=== PATIENT | female | born 1990 | race Caucasian/White ===

== ENCOUNTER 2018-09-27 00:39 | Emergency (ER) | payer OTHER ==
[2018-09-27 01:54] VITALS: TEMP 98.1; BMI 39.2
[2018-09-27] MEDS ORDERED: SODIUM CHLORIDE 1,000 ML IV STA (02:21)
[2018-09-27] MEDS ORDERED: ONDANSETRON 4 MG/2 ML VIAL IVPUSH ONE (02:21)
[2018-09-27] MEDS ORDERED: ONDANSETRON 4 MG/2 ML VIAL ONE (02:26)
[2018-09-27 02:47] LABS: URINE APPEARANCE CLEAR; URINE BILIRUBIN NEGATIVE (<2.0 mg/dL); URINE COLOR YELLOW; URINE GLUCOSE (UA) NEGATIVE (NEGATIVE); URINE KETONE NEGATIVE (NEGATIVE); URINE LEUK ESTERASE TRACE (NEGATIVE); URINE NITRITE NEGATIVE (NEGATIVE); URINE PROTEIN NEGATIVE (NEGATIVE); URINE UROBILINOGEN NEGATIVE mg/dL (0.2-1.0)
[2018-09-27 03:03] LABS: BASO % 0.4 % (0-2.0); HEMATOCRIT 39.3 % (32.4-45.2); HEMOGLOBIN 13.3 GM/dL (10.7-15.3); LYMPH % 31.3 % (8-40); MCHC 33.8 g/dl (32.0-36.0); MEAN CELL VOLUME 82.8 fl (80-96); MONO % 6.8 % (3.8-10.2); NEUT % 57.5 % (42.8-82.8); PLATELET COUNT 360 K/MM3 (134-434); RBC 4.75 M/mm3 (3.60-5.2); RDW 12.9 % (11.6-15.6); WHITE BLOOD COUNT 5.2 K/mm3 (4.0-10.0)
[2018-09-27] MEDS ORDERED: morphine CARPU-JECT 4 MG/1 ML DISP.SYRIN IVPUSH ONE (03:11)
[2018-09-27 03:13] LABS: ALBUMIN 3.9 g/dl (3.4-5.0); ALK PHOS 91 U/L (45-117); ANION GAP 10 MMOL/L (8-16); BILIRUBIN,TOTAL 0.5 mg/dL (0.2-1); BLOOD UREA NITROGEN 10 mg/dL (7-18); CALCIUM 8.5 mg/dL (8.5-10.1); CHLORIDE 109 mmol/L (98-107); CO2 24 mmol/L (21-32); CREATININE 0.7 mg/dL (0.55-1.3); GLUCOSE,RANDOM 98 mg/dL (74-106); LIPASE 112 U/L (73-393); POTASSIUM 4.1 mmol/L (3.5-5.1); SGOT/AST 19 U/L (15-37); SGPT/ALT 32 U/L (13-61); SODIUM 143 mmol/L (136-145); TOT PROT 7.2 g/dl (6.4-8.2)
[2018-09-27] MEDS ORDERED: morphine SULFATE 4 MG/ML VIAL ONE (03:33)
[2018-09-27 03:34] LABS: EPI CELLS FEW /HPF (FEW); URINE BACTERIA FEW /hpf (NONE SEEN); URINE MUCUS RARE
--- NOTE | 2018-09-27 04:37 | PDOC ---
History of Present Illness - General Chief Complaint: Pain Stated Complaint: LOWER ABD PAIN/NAUSEA Time Seen by Provider: 09/27/18 02:11 History Source: Patient Exam Limitations: No Limitations - History of Present Illness Travel History: No Initial Comments: 28 y/o F hx of asthma, hypertriglyceridemia, GERD presents with lower abdominal cramping along with NBNB emesis and watery diarrhea that started today around 6 PM. 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 Denies possible bad food exposure, recent travel. Denies fever, chills , sob, cp, black/bloody stools, dysuria, hematuria, flank pain, vaginal bleeding , vaginal discharge. Denies abdominal surgeries 09/27/18 04:35 Past History - Past Medical History Allergies/Adverse Reactions: Allergies Allergy/AdvReac Type Severity Reaction Status Date / Time Penicillins Allergy Hives Verified 09/27/18 01:58 Home Medications: Ambulatory Orders Albuterol Sulfate Inhaler - [Ventolin HFA Inhaler -] 2 inh PO Q4H PRN #1 inhaler 09/05/15 Budesonide/Formeterol Fumarate [SYMBICORT 80/4.5mcg -] 1 inh PO BID 09/27/18 Gemfibrozil [Lopid -] 600 mg PO BID 09/27/18 Ondansetron [Zofran Odt -] 4 mg SL BID PRN #14 od.tablet 09/27/18 Asthma: Yes COPD: No Other medical history: GERD - Reproductive History (#): 3 Para: 1 Therapeutic (s) & number: Yes (1) Spontaneous : 0 - Immunization History Immunization Up to Date: Yes - Suicide/Smoking/Psychosocial Hx Smoking Status: No Smoking History: Never smoked Have you smoked in the past 12 months: No Number of Cigarettes Smoked Daily: 0 Hx Alcohol Use: No Drug/Substance Use Hx: No Substance Use Type: None, Marijuana Abd/GI Specific PMHX - Complaint Specific PMHX Colitis: No Diverticulitis: No Gall Bladder Disease: No GERD: Yes Hepatitis: No Irritable Bowel Synd (IBS): No Pancreatitis: No GI Ulcer Disease: No Review of Systems - Review of Systems Comments:: See HPI 09/27/18 04:41 *Physical Exam - Vital Signs Last Vital Signs Temp Pulse Resp BP Pulse Ox 98.1 F 75 19 128/79 99 09/27/18 01:21 09/27/18 01:21 09/27/18 01:21 09/27/18 01:21 09/27/18 01:21 - Physical Exam General Appearance: Yes: Mild Distress Respiratory/Chest: positive: Lungs Clear, Normal Breath Sounds. negative: Respiratory Distress, Labored Respiration Cardiovascular: positive: Regular Rhythm, Regular Rate, S1, S2 Female Pelvic Exam: positive: normal external exam, cervical os closed, normal adnexa. negative: CMT, discharge, adnexal tenderness, vaginal bleeding Gastrointestinal/Abdominal: positive: Normal Bowel Sounds, Tender (Mild suprapubic TTP), Soft. negative: Distended, Guarding, Rebound, Hernia, Mass Musculoskeletal: negative: CVA Tenderness Neurologic: positive: Fully Oriented, Alert ED Treatment Course - LABORATORY CBC & Chemistry Diagram: 09/27/18 02:40 09/27/18 02:40 - ADDITIONAL ORDERS Additional order review: Laboratory Results 09/27/18 09/27/18 09/27/18 02:40 02:40 02:40 Sodium 143 Potassium 4.1 Chloride 109 H Carbon Dioxide 24 Anion Gap 10 BUN 10 Creatinine 0.7 Creat Clearance w eGFR > 60 Random Glucose 98 Calcium 8.5 Total Bilirubin 0.5 AST 19 ALT 32 Alkaline Phosphatase 91 Total Protein 7.2 Albumin 3.9 Lipase 112 Serum , Qual Negative Urine Color Yellow Urine Appearance Clear Urine pH 5.0 Ur Specific [place] 1.020 Urine Protein Negative Urine Glucose (UA) Negative Urine Ketones Negative Urine Blood Negative Urine Nitrite Negative Urine Bilirubin Negative Urine Urobilinogen Negative Ur Leukocyte Esterase Trace Urine WBC (Auto) 2 Urine RBC (Auto) <1 Ur Epithelial Cells Few Urine Bacteria Few Urine Mucus Rare 09/27/18 02:40 RBC 4.75 MCV 82.8 MCHC 33.8 RDW 12.9 MPV 8.0 Neutrophils % 57.5 Lymphocytes % 31.3 Monocytes % 6.8 Eosinophils % 4.0 D Basophils % 0.4 - Medications Given in the ED: ED Medications Discontinued Medications Generic Name Dose Route Start Last Admin Trade Name Freq PRN Reason Stop Dose Admin Sodium Chloride 1,000 mls @ 1,000 mls/hr 09/27/18 02:21 09/27/18 02:39 Normal Saline - IV 09/27/18 03:20 1,000 mls/hr ASDIR STA Administration Morphine Sulfate 4 mg 09/27/18 03:11 09/27/18 03:35 Morphine Injection - IVPUSH 09/27/18 03:12 4 mg ONCE ONE Administration Ondansetron HCl 4 mg 09/27/18 02:21 09/27/18 02:39 Zofran Injection IVPUSH 09/27/18 02:22 4 mg ONCE ONE Administration Medical Decision Making - Medical Decision Making 28 y/o F not presented with suprapubic pain, NBNB emesis and watery diarrhea x 1 day. Labs reassuring with normal CBC, unremarkable CMP, negative lipase and negative UA. Patient was given 1 L NS fluids, Zofran and Morphine. Patient was reassessed after some time and feeling a lot better. Patient passed PO challenge. Likely this was viral gastroenteritis. Rx for Zofran sent. Return precautions discussed with patient. 09/27/18 04:43 *DC/Admit/Observation/Transfer Diagnosis at time of Disposition: Gastroenteritis - Discharge Dispostion Disposition: HOME Condition at time of disposition: Improved Decision to Admit order: No - Prescriptions Prescriptions: Ondansetron [Zofran Odt -] 4 mg SL BID PRN #14 od.tablet PRN Reason: Nausea And/Or Vomiting - Referrals Referrals: Lucho Patel MD [Primary Care Provider] - 1 week - Patient Instructions Printed Discharge Instructions: DI for Viral Gastroenteritis -- Adult Additional Instructions: Thank you for choosing [facility]. It was a pleasure taking care of you. Likely your symptoms are from viral infection Recommend eating bland diet with foods like banana, rice, applesauce, toast, plain yogurt Be sure to drink plenty of water to stay hydrated and get enough electrolytes You may also try taking over the counter probiotics Return to the Emergency Department if your symptoms worsen or persist, you have fever, shortness of breath, chest pain, severe abdominal pain, vomiting, passing bloody stools, are unable to keep down water or solid food or have other concerning symptoms. - Post Discharge Activity Forms/Work/School Notes: Back to Work
[2018-09-27 05:07] VITALS: BP 128/82; PULSE 82
--- NOTE | 2018-09-27 05:24 | PDOC ---
*Physical Exam - Vital Signs Last Vital Signs Temp Pulse Resp BP Pulse Ox 98.1 F 82 18 128/82 99 09/27/18 01:21 09/27/18 05:06 09/27/18 05:06 09/27/18 05:06 09/27/18 05:06 ED Treatment Course - LABORATORY CBC & Chemistry Diagram: 09/27/18 02:40 09/27/18 02:40 - ADDITIONAL ORDERS Additional order review: Laboratory Results 09/27/18 09/27/18 09/27/18 02:40 02:40 02:40 Sodium 143 Potassium 4.1 Chloride 109 H Carbon Dioxide 24 Anion Gap 10 BUN 10 Creatinine 0.7 Creat Clearance w eGFR > 60 Random Glucose 98 Calcium 8.5 Total Bilirubin 0.5 AST 19 ALT 32 Alkaline Phosphatase 91 Total Protein 7.2 Albumin 3.9 Lipase 112 Serum , Qual Negative Urine Color Yellow Urine Appearance Clear Urine pH 5.0 Ur Specific [place] 1.020 Urine Protein Negative Urine Glucose (UA) Negative Urine Ketones Negative Urine Blood Negative Urine Nitrite Negative Urine Bilirubin Negative Urine Urobilinogen Negative Ur Leukocyte Esterase Trace Urine WBC (Auto) 2 Urine RBC (Auto) <1 Ur Epithelial Cells Few Urine Bacteria Few Urine Mucus Rare 09/27/18 02:40 RBC 4.75 MCV 82.8 MCHC 33.8 RDW 12.9 MPV 8.0 Neutrophils % 57.5 Lymphocytes % 31.3 Monocytes % 6.8 Eosinophils % 4.0 D Basophils % 0.4 - Medications Given in the ED: ED Medications Discontinued Medications Generic Name Dose Route Start Last Admin Trade Name Freq PRN Reason Stop Dose Admin Sodium Chloride 1,000 mls @ 1,000 mls/hr 09/27/18 02:21 09/27/18 02:39 Normal Saline - IV 09/27/18 03:20 1,000 mls/hr ASDIR STA Administration Morphine Sulfate 4 mg 09/27/18 03:11 09/27/18 03:35 Morphine Injection - IVPUSH 09/27/18 03:12 4 mg ONCE ONE Administration Ondansetron HCl 4 mg 09/27/18 02:21 09/27/18 02:39 Zofran Injection IVPUSH 09/27/18 02:22 4 mg ONCE ONE Administration Medical Decision Making - Medical Decision Making 09/27/18 05:23 28F complaining of lower, crampy abd px a/w watery diarrhea, endorses +sick contact exam as documented in associated PA note analgesia f/u labs re-eval Symptoms resolved 2/2 treatment exam unremarkable dc out pt follow up *DC/Admit/Observation/Transfer Diagnosis at time of Disposition: Gastroenteritis - Discharge Dispostion Disposition: HOME Condition at time of disposition: Improved - Prescriptions Prescriptions: Ondansetron [Zofran Odt -] 4 mg SL BID PRN #14 od.tablet PRN Reason: Nausea And/Or Vomiting - Referrals Referrals: Lucho Patel MD [Primary Care Provider] - 1 week - Patient Instructions Printed Discharge Instructions: DI for Viral Gastroenteritis -- Adult Additional Instructions: Thank you for choosing [facility]. It was a pleasure taking care of you. Likely your symptoms are from viral infection Recommend eating bland diet with foods like banana, rice, applesauce, toast, plain yogurt Be sure to drink plenty of water to stay hydrated and get enough electrolytes You may also try taking over the counter probiotics Return to the Emergency Department if your symptoms worsen or persist, you have fever, shortness of breath, chest pain, severe abdominal pain, vomiting, passing bloody stools, are unable to keep down water or solid food or have other concerning symptoms. - Post Discharge Activity Forms/Work/School Notes: Back to Work
== END 2018-09-27 05:07 | disposition home or self-care (01) ==
LOC: JER 00:39
PROC: 3E033NZ Introduction of Analgesics, Hypnotics, Sedatives into Peripheral Vein, Percutaneous Approach (ICD-10-PCS; principal; 2018-09-27)
PROC: 3E033GC Introduction of Other Therapeutic Substance into Peripheral Vein, Percutaneous Approach (ICD-10-PCS; 2018-09-27)
PROC: 3E0337Z Introduction of Electrolytic and Water Balance Substance into Peripheral Vein, Percutaneous Approach (ICD-10-PCS; 2018-09-27)
DX: K52.9 Noninfective gastroenteritis and colitis, unspecified (principal)
CPT/HCPCS: 36415; 80053; 81003; 81015; 83690; 84703; 85025; 99282-25; J7030

== ENCOUNTER 2019-01-06 10:07 | Emergency (ER) | payer OTHER ==
[2019-01-06 10:19] VITALS: BP 126/89; PULSE 85; TEMP 98.2; BMI 39.6
--- NOTE | 2019-01-06 10:52 | PDOC ---
History of Present Illness - General Chief Complaint: Injury Stated Complaint: LOWER BACK PAIN / KNEE PAIN Time Seen by Provider: 01/06/19 10:31 History Source: Patient Exam Limitations: No Limitations (R knee and back pain s/p fall yesterday) - History of Present Illness Pain Location: reports: back, lower extremity (R knee pain) Loss of Consciousness: no loss of consciousness Past History - Travel Traveled outside of the country in the last 30 days: No Close contact w/someone who was outside of country & ill: No - Past Medical History Allergies/Adverse Reactions: Allergies Allergy/AdvReac Type Severity Reaction Status Date / Time Penicillins Allergy Hives Verified 01/06/19 10:40 Home Medications: Ambulatory Orders Albuterol Sulfate Inhaler - [Ventolin HFA Inhaler -] 2 inh PO Q4H PRN #1 inhaler 09/05/15 Budesonide/Formeterol Fumarate [SYMBICORT 80/4.5mcg -] 1 inh PO BID 09/27/18 Aripiprazole [Abilify -] 10 mg PO DAILY 01/06/19 Citalopram Hydrobromide [Celexa -] 20 mg PO DAILY 01/06/19 Cyclobenzaprine HCl 10 mg PO BID 7 Days #20 tablet 01/06/19 Ibuprofen [Motrin -] 600 mg PO TID 01/06/19 Multivitamin [Multiple Vitamins] 1 each PO DAILY 01/06/19 Naproxen [EC-Naprosyn] 500 mg PO BID 15 Days #30 tablet. 01/06/19 Vitamin B Complex 1 each PO DAILY 01/06/19 Asthma: Yes COPD: No Psychiatric Problems: Yes - Reproductive History (#): 3 Para: 1 Therapeutic (s) & number: Yes (1) Spontaneous : 0 - Immunization History Immunization Up to Date: Yes - Suicide/Smoking/Psychosocial Hx Smoking Status: No Smoking History: Unknown if ever smoked Have you smoked in the past 12 months: No Number of Cigarettes Smoked Daily: 0 Hx Alcohol Use: No Drug/Substance Use Hx: No Substance Use Type: None, Marijuana Review of Systems - Review of Systems Is the patient limited Prydeinig proficient: No Constitutional: No: Chills, Fever Musculoskeletal: Yes: Back Pain, Other (R knee pain). No: Joint Swelling, Muscle Pain, Muscle Weakness, Joint Stiffness Neurological: Yes: Unsteady Gait. No: Headache, Numbness, Paresthesia, Tingling , Tremors, Ataxia *Physical Exam - Vital Signs Last Vital Signs Temp Pulse Resp BP Pulse Ox 98.2 F 85 18 126/89 99 01/06/19 10:18 01/06/19 10:18 01/06/19 10:18 01/06/19 10:18 01/06/19 10:18 - Physical Exam General Appearance: Yes: Nourished Respiratory/Chest: positive: Lungs Clear, Normal Breath Sounds Cardiovascular: positive: Regular Rhythm, Regular Rate, S1, S2 Extremity: positive: Normal Capillary Refill, Other (R knee: + paraspinal tenderness noted in LS spine, no spinal tenderness.l + R knee: tenderness in anterrior knee joint, limited FROM d/t pain, distal pulse intact, + limpling gait) 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, Fully Oriented, Alert Moderate Sedation - Procedure Monitoring Vital Signs: Procedure Monitoring Vital Signs Temperature 98.2 F 01/06/19 10:18 Pulse Rate 85 01/06/19 10:18 Respiratory Rate 18 01/06/19 10:18 Blood Pressure 126/89 01/06/19 10:18 O2 Sat by Pulse Oximetry (%) 99 01/06/19 10:18 ED Treatment Course - RADIOLOGY Radiology Studies Ordered: Category Date Time Status KNEE 3 POS-RIGHT [RAD] Stat Radiology 01/06/19 10:46 Ordered SPINE-LUMBAR SACRAL [RAD] Stat Radiology 01/06/19 10:46 Ordered Medical Decision Making - Medical Decision Making 01/06/19 10:51 28y/o F s/p R knee pain and back pain after a fall on ice yesterday, + prior R knee injury and mensical tear years ago--no surgery but physical therapy was done R knee with limited ROM xray of knee and back pt took motrin 1hr prior to arrival 01/06/19 12:13 Xray noted for knee effusion, no fx or dislocation LS spine was negative knee immobilizer provided to pt nsaids and muscle relaxer f/u with orthopedics for further evaluation or if symptoms persist. *DC/Admit/Observation/Transfer Diagnosis at time of Disposition: Knee effusion, right Back pain Qualifiers: Back pain location: low back pain Chronicity: acute Back pain laterality: unspecified Sciatica presence: without sciatica Qualified Code(s): M54.5 - Low back pain - Discharge Dispostion Disposition: HOME Condition at time of disposition: Stable Decision to Admit order: No - Prescriptions Prescriptions: Cyclobenzaprine HCl 10 mg PO BID 7 Days #20 tablet Naproxen [EC-Naprosyn] 500 mg PO BID 15 Days #30 tablet.dr - Referrals Referrals: Marcelo Mcgrath MD [Staff Physician] - - Patient Instructions Printed Discharge Instructions: DI for Low Back Pain, DI for Knee Effusion Additional Instructions: Your Knee x-ray was negative for fracture or any acute dislocation, or some swelling and inflammation noted in the knee. Use immobilizer as needed for pain. Please follow up with orthopedic doctor if the pain persist for further imaging and evaluation. Your back x-ray was negative for any fracture. Please return to the emergency room if worsening symptoms - Post Discharge Activity
== END 2019-01-06 12:28 | disposition home or self-care (01) ==
LOC: JERFT 10:07
PROC: 2W3QXYZ Immobilization of Right Lower Leg using Other Device (ICD-10-PCS; principal; 2019-01-06)
DX: M25.461 Effusion, right knee (principal); M54.5 Low back pain; W00.2XXA Other fall from one level to another due to ice and snow, initial encounter; Y93.89 Activity, other specified; Y92.89 Other specified places as the place of occurrence of the external cause; Y99.8 Other external cause status; Z87.09 Personal history of other diseases of the respiratory system
CPT/HCPCS: 29505; 72100-TC-FY; 73562-TC-RT-FY; 84703; 99281-25

== ENCOUNTER 2019-06-10 16:12 | Emergency (ER) | payer OTHER ==
[2019-06-10] MEDS ORDERED: ONDANSETRON 4 MG/2 ML VIAL IVPUSH ONE (16:18)
[2019-06-10] MEDS ORDERED: SODIUM CHLORIDE 1,000 ML IV STA (16:18)
--- NOTE | 2019-06-10 16:18 | PDOC ---
Rapid Medical Evaluation Chief Complaint: Pain, Acute Time Seen by Provider: 06/10/19 16:16 Medical Evaluation: Allergies Allergy/AdvReac Type Severity Reaction Status Date / Time Penicillins Allergy Hives Verified 06/10/19 16:15 06/10/19 16:16 I have performed a brief in-person evaluation of this patient. The patient presents with a chief complaint of: diffuse abdominal pain Pertinent physical exam findings: SNTND I have ordered the following: labs, urine The patient will proceed to the ED for further evaluation. Discharge Disposition - Diagnosis Abdominal pain - Referrals - Patient Instructions - Post Discharge Activity
[2019-06-10 16:20] VITALS: BMI 40.0
--- NOTE | 2019-06-10 16:55 | PDOC ---
History of Present Illness - General Chief Complaint: Pain, Acute Stated Complaint: ABDOMINAL PAIN Time Seen by Provider: 06/10/19 16:16 History Source: Patient Exam Limitations: No Limitations - History of Present Illness Travel History: No Initial Comments: 06/10/19 17:57 29-year-old female with history of GERD presents to ED with epigastric pain that she describes as of spasm since yesterday associated with nausea and decreased appetite. Patient states did not take her Prilosec secondary to discomfort and decided come to the ER for further evaluation. Patient has no urinary or bowel complaints recent travel, or recent illness Timing/Duration: reports: intermittent Quality: reports: moderate, aching, sharpness Abdominal Pain Onset Location: reports: epigastric, periumbilical Activities at Onset: reports: none Aggravating Factors: improves with: None Alleviating Factors: improves with: None Past History - Travel Traveled outside of the country in the last 30 days: No Close contact w/someone who was outside of country & ill: No - Past Medical History Allergies/Adverse Reactions: Allergies Allergy/AdvReac Type Severity Reaction Status Date / Time Penicillins Allergy Hives Verified 06/10/19 16:15 Home Medications: Ambulatory Orders Albuterol Sulfate Inhaler - [Ventolin HFA Inhaler -] 2 inh PO Q4H PRN #1 inhaler 09/05/15 Budesonide/Formeterol Fumarate [SYMBICORT 80/4.5mcg -] 1 inh PO BID 09/27/18 Aripiprazole [Abilify -] 10 mg PO DAILY 01/06/19 Vitamin B Complex 1 each PO DAILY 01/06/19 Ondansetron [Zofran *Odt*] 4 mg SL TID PRN #7 od.tablet 06/10/19 Pantoprazole Sodium [Protonix] 40 mg PO DAILY #14 tablet. 06/10/19 Asthma: Yes COPD: No GI Disorders: Yes Psychiatric Problems: Yes - Reproductive History (#): 3 Para: 1 Therapeutic (s) & number: Yes (1) Spontaneous : 0 - Immunization History Immunization Up to Date: Yes - Suicide/Smoking/Psychosocial Hx Smoking Status: No Smoking History: Never smoked Have you smoked in the past 12 months: No Number of Cigarettes Smoked Daily: 0 Hx Alcohol Use: No Drug/Substance Use Hx: No Substance Use Type: None, Marijuana Patient Lives Alone: No Lives with/in: spouse/SO Abd/GI Specific PMHX - Complaint Specific PMHX Colitis: No Diverticulitis: No Gall Bladder Disease: No GERD: Yes Hepatitis: No Irritable Bowel Synd (IBS): No Pancreatitis: No GI Ulcer Disease: No Review of Systems - Review of Systems Able to Perform ROS?: Yes Constitutional: No: Symptoms Reported HEENTM: No: Symptoms Reported Respiratory: No: Symptoms reported Cardiac (ROS): No: Symptoms Reported ABD/GI: Yes: Nausea, Abdominal cramping : No: Symptoms Reported Musculoskeletal: No: Symptoms Reported Integumentary: No: Symptoms Reported Neurological: No: Symptoms reported *Physical Exam - Vital Signs Last Vital Signs Temp Pulse Resp BP Pulse Ox 98.6 F 109 H 18 129/79 95 06/10/19 16:17 06/10/19 16:17 06/10/19 16:17 06/10/19 16:17 06/10/19 16:17 - Physical Exam General Appearance: Yes: Nourished, Appropriately Dressed. No: Apparent Distress HEENT: positive: EOMI Neck: positive: Normal Thyroid Respiratory/Chest: positive: Lungs Clear, Normal Breath Sounds. negative: Respiratory Distress, Accessory Muscle Use Cardiovascular: positive: Regular Rhythm, Tachycardia. negative: Murmur Gastrointestinal/Abdominal: positive: Normal Bowel Sounds, Soft, Tenderness ( lower periumbilical periumbilical and epigastric region). negative: Distended, Guarding, Rebound Musculoskeletal: negative: CVA Tenderness Integumentary: positive: Normal Color, Warm, Moist Neurologic: positive: Motor Strength 5/5 (ambulatory) ED Treatment Course - LABORATORY CBC & Chemistry Diagram: 06/10/19 17:19 06/10/19 17:00 Medical Decision Making - Medical Decision Making 06/10/19 17:59 Chief complaint: upper abdominal pain associate nausea since yesterday. Patient with history of GERD but did not take any medication. Patient denies alcohol abuse Exam: Epigastric and periumbilical tenderness, slightly tachycardic likely due to pain Plan; labs, urine, Toradol, Zofran protonic's and IV fluids 06/10/19 19:00 Urine spilt in tube system patient ordered for morphine. Signout given to MARIAJOSE molina *DC/Admit/Observation/Transfer Diagnosis at time of Disposition: Abdominal pain Qualifiers: Abdominal location: epigastric Qualified Code(s): R10.13 - Epigastric pain - Discharge Dispostion Disposition: HOME - Prescriptions Prescriptions: Ondansetron [Zofran *Odt*] 4 mg SL TID PRN #7 od.tablet PRN Reason: Nausea Pantoprazole Sodium [Protonix] 40 mg PO DAILY #14 tablet.dr - Referrals Referrals: Eric Thompson MD [Staff Physician] - Call tomorrow ON STAFF,NOT [Primary Care Provider] - - Patient Instructions Printed Discharge Instructions: [place] Diet Additional Instructions: continue a bland diet take Protonix as prescribed. follow up with Dr. Thompson as possible. Additional Instructions: * Please call your personal physician to report your Emergency Department visit and to report your progress, if any. * If there is no improvement in symptoms in 2 days call your physician. * Return to the Emergency Department for any worsening symptoms. - Post Discharge Activity Forms/Work/School Notes: Back to Work
[2019-06-10] MEDS ORDERED: KETOROLAC TROMETHAMINE 30 MG/1 ML VIAL IVPUSH ONE (16:56)
[2019-06-10] MEDS ORDERED: PANTOPRAZOLE SODIUM 40 MG in SODIUM CHLORIDE 100 ML IVPB ONE (16:56)
[2019-06-10] MEDS ORDERED: PANTOPRAZOLE SODIUM 40 MG/100 ML BAG IVPB ONE (17:24)
[2019-06-10] MEDS ORDERED: ONDANSETRON 4 MG/2 ML VIAL ONE (17:25)
[2019-06-10] MEDS ORDERED: morphine CARPU-JECT 2 MG/1 ML DISP.SYRIN IVPUSH ONE (18:06)
[2019-06-10] MEDS ORDERED: morphine SULFATE 4 MG/ML VIAL ONE (18:17)
[2019-06-10 19:15] LABS: ALBUMIN 3.8 g/dl (3.4-5.0); BILIRUBIN,TOTAL 1.2 mg/dL (0.2-1); BLOOD UREA NITROGEN 7.7 mg/dL (7-18); CALCIUM 8.7 mg/dL (8.5-10.1); CREATININE 0.9 mg/dL (0.55-1.3); POTASSIUM 4.8 mmol/L (3.5-5.1); TOT PROT 7.5 g/dl (6.4-8.2)
[2019-06-10 20:00] VITALS: BP 114/70; PULSE 100; TEMP 98.9
[2019-06-10 20:45] LABS: HEMATOCRIT 40.6 % (32.4-45.2); HEMOGLOBIN 13.9 GM/dL (10.7-15.3); MCH 28.3 pg (25.7-33.7); MCHC 34.3 g/dl (32.0-36.0); MEAN CELL VOLUME 82.5 fl (80-96); RBC 4.93 M/mm3 (3.60-5.2); WHITE BLOOD COUNT 8.6 K/mm3 (4.0-10.0)
[2019-06-10 20:46] LABS: MEAN PLT VOLUME 9.3 fl (7.5-11.1); MONO % 6.4 % (3.8-10.2); NEUT % 80.6 % (42.8-82.8); RDW 12.3 % (11.6-15.6)
[2019-06-10 20:47] LABS: BASO % 0.2 % (0-2.0); EOS % 0.7 % (0-4.5); PLATELET ESTIMATE ADEQUATE
[2019-06-10 20:57] LABS: URINE APPEARANCE CLOUDY; URINE BILIRUBIN NEGATIVE (NEGATIVE); URINE COLOR DK YELLOW; URINE GLUCOSE (UA) NEGATIVE (NEGATIVE); URINE KETONE 2+ (NEGATIVE); URINE LEUK ESTERASE NEGATIVE (NEGATIVE); URINE NITRITE NEGATIVE (NEGATIVE); URINE PROTEIN NEGATIVE (NEGATIVE)
--- NOTE | 2019-06-10 21:17 | PDOC ---
*Physical Exam - Vital Signs Last Vital Signs Temp Pulse Resp BP Pulse Ox 98.9 F 100 H 20 114/70 98 06/10/19 19:59 06/10/19 19:59 06/10/19 19:59 06/10/19 19:59 06/10/19 19:59 - Physical Exam General Appearance: Yes: Appropriately Dressed Gastrointestinal/Abdominal: positive: Normal Bowel Sounds, Soft. negative: Tender ED Treatment Course - LABORATORY CBC & Chemistry Diagram: 06/10/19 17:19 06/10/19 17:00 - ADDITIONAL ORDERS Additional order review: Laboratory Results 06/10/19 06/10/19 06/10/19 18:29 17:05 17:00 Sodium 138 Potassium 4.8 Chloride 105 Carbon Dioxide 22 Anion Gap 11 BUN 7.7 Creatinine 0.9 Est GFR (CKD-EPI)AfAm 98.75 Est GFR (CKD-EPI)NonAf 85.20 Random Glucose 109 H Calcium 8.7 Magnesium 2.0 Total Bilirubin 1.2 H AST 36 ALT 35 Alkaline Phosphatase 99 Total Protein 7.5 Albumin 3.8 Lipase 54 L Urine Color Dk yellow Urine Appearance Cloudy Urine pH 5.0 Ur Specific [place] 1.028 Urine Protein Negative Urine Glucose (UA) Negative Urine Ketones 2+ H Urine Blood Negative Urine Nitrite Negative Urine Bilirubin Negative Urine Urobilinogen 1.0 Ur Leukocyte Esterase Negative Urine HCG, Qual Negative 06/10/19 17:19 RBC 4.93 MCV 82.5 MCHC 34.3 RDW 12.3 MPV 9.3 D Neutrophils % 80.6 D Lymphocytes % 12.0 D Monocytes % 6.4 Eosinophils % 0.7 D Basophils % 0.2 - Medications Given in the ED: ED Medications Discontinued Medications Generic Name Dose Route Start Last Admin Trade Name Freq PRN Reason Stop Dose Admin Sodium Chloride 1,000 mls @ 1,000 mls/hr 06/10/19 16:18 06/10/19 17:15 Normal Saline - IV 06/10/19 17:17 1,000 mls/hr ASDIR STA Administration Pantoprazole Sodium 40 mg/ 100 mls @ 200 mls/hr 06/10/19 16:56 06/10/19 17:35 Sodium Chloride IVPB 06/10/19 17:25 200 mls/hr ONCE ONE Administration Ketorolac Tromethamine 30 mg 06/10/19 16:56 06/10/19 18:20 Toradol Injection - IVPUSH 06/10/19 16:57 Not Given ONCE ONE Morphine Sulfate 4 mg 06/10/19 18:06 06/10/19 18:20 Morphine Injection - IVPUSH 06/10/19 18:07 4 mg ONCE ONE Administration Ondansetron HCl 4 mg 06/10/19 16:18 06/10/19 17:14 Zofran Injection IVPUSH 06/10/19 16:19 4 mg ONCE ONE Administration Medical Decision Making - Medical Decision Making 06/10/19 21:13 patient is now feeling better.will send home protonix. patient will follow up with Dr. carter. 0 *DC/Admit/Observation/Transfer Diagnosis at time of Disposition: Abdominal pain Qualifiers: Abdominal location: epigastric Qualified Code(s): R10.13 - Epigastric pain - Discharge Dispostion Disposition: HOME - Prescriptions Prescriptions: Ondansetron [Zofran *Odt*] 4 mg SL TID PRN #7 od.tablet PRN Reason: Nausea Pantoprazole Sodium [Protonix] 40 mg PO DAILY #14 tablet.dr - Referrals Referrals: ON STAFF,NOT [Primary Care Provider] - Eric Carter MD [Staff Physician] - Call tomorrow - Patient Instructions Printed Discharge Instructions: [place] Diet Additional Instructions: continue a bland diet take Protonix as prescribed. follow up with Dr. Carter as possible. Additional Instructions: * Please call your personal physician to report your Emergency Department visit and to report your progress, if any. * If there is no improvement in symptoms in 2 days call your physician. * Return to the Emergency Department for any worsening symptoms. - Post Discharge Activity Forms/Work/School Notes: Back to Work
== END 2019-06-10 21:27 | disposition home or self-care (01) ==
LOC: JER 16:12
PROC: 3E033NZ Introduction of Analgesics, Hypnotics, Sedatives into Peripheral Vein, Percutaneous Approach (ICD-10-PCS; principal; 2019-06-10)
PROC: 3E033GC Introduction of Other Therapeutic Substance into Peripheral Vein, Percutaneous Approach (ICD-10-PCS; 2019-06-10)
PROC: 3E0337Z Introduction of Electrolytic and Water Balance Substance into Peripheral Vein, Percutaneous Approach (ICD-10-PCS; 2019-06-10)
DX: R10.13 Epigastric pain (principal); K21.9 Gastro-esophageal reflux disease without esophagitis; J45.909 Unspecified asthma, uncomplicated; F99 Mental disorder, not otherwise specified
CPT/HCPCS: 36415; 80053; 81003; 83690; 83735; 84703; 85025; 99283-25; J7030

== ENCOUNTER 2019-08-11 10:32 | Emergency (ER) | payer OTHER ==
[2019-08-11 10:46] VITALS: BP 124/87; PULSE 96; TEMP 98.2; BMI 40.0
[2019-08-11] MEDS ORDERED: ALBUTEROL SO4 2.5/IPRATROPIUM 0.5 INH SOL 3 ML VIAL.NEB. NEB ONE ×4 (10:58→11:31)
--- NOTE | 2019-08-11 10:59 | PDOC ---
History of Present Illness - General Chief Complaint: Respiratory Stated Complaint: CONGESTION / COUGH Time Seen by Provider: 08/11/19 10:47 History Source: Patient Exam Limitations: No Limitations - History of Present Illness Initial Comments: 08/11/19 11:03 Patient came for evaluation of continued moist cough, shortness of breath and wheezing. States ran out of Symbicort and albuterol pumps as patient's insurance status changed. However has reinstatement within 2 weeks and has Medicaid currently. Denies fever, but states breathing progressively worsening. Is this a multiple visit Asthma Patient?: No Timing/Duration: reports: just prior to arrival Severity: reports: moderate Modifying Factors: improves with: albuterol inhaler Associated Symptoms: reports: cough, fever/chills, nasal congestion, shortness of breath Past History - Travel Traveled outside of the country in the last 30 days: No Close contact w/someone who was outside of country & ill: No - Past Medical History Allergies/Adverse Reactions: Allergies Allergy/AdvReac Type Severity Reaction Status Date / Time Penicillins Allergy Hives Verified 08/11/19 10:46 Home Medications: Ambulatory Orders Albuterol Sulfate Inhaler - [Ventolin HFA Inhaler -] 2 inh PO Q4H PRN #1 inhaler 09/05/15 Budesonide/Formeterol Fumarate [SYMBICORT 80/4.5mcg -] 1 inh PO BID 09/27/18 Aripiprazole [Abilify -] 10 mg PO DAILY 01/06/19 Vitamin B Complex 1 each PO DAILY 01/06/19 Ondansetron [Zofran *Odt*] 4 mg SL TID PRN #7 od.tablet 06/10/19 Pantoprazole Sodium [Protonix] 40 mg PO DAILY #14 tablet. 06/10/19 Albuterol Sulfate Inhaler - [Ventolin HFA Inhaler -] 1 - 2 inh PO Q4H #1 inhaler 08/11/19 Azithromycin [Zithromax -] 250 mg PO UTDICT #6 tab 08/11/19 predniSONE [Deltasone -] 20 mg PO BID #8 tablet 08/11/19 Asthma: Yes COPD: No GI Disorders: Yes Psychiatric Problems: Yes - Reproductive History (#): 3 Para: 1 Therapeutic (s) & number: Yes (1) Spontaneous : 0 - Immunization History Immunization Up to Date: Yes - Suicide/Smoking/Psychosocial Hx Smoking Status: No Smoking History: Never smoked Have you smoked in the past 12 months: No Number of Cigarettes Smoked Daily: 0 Hx Alcohol Use: No Drug/Substance Use Hx: No Substance Use Type: None, Marijuana Respiratory Specific PMHX - Complaint Specific PMHX Angina: No Bronchitis: Yes Pneumonia: No Pulmonary Embolus: No TB (Tuberculosis): No Review of Systems - Review of Systems Able to Perform ROS?: Yes Is the patient limited Hungarian proficient: Yes Constitutional: Yes: Symptoms Reported, See HPI, Fever, Malaise HEENTM: Yes: Symptoms Reported, See HPI, Nose Congestion, Throat Pain Respiratory: Yes: Symptoms reported, See HPI, Cough, Shortness of Breath, Wheezing Cardiac (ROS): Yes: See HPI. No: Symptoms Reported Integumentary: Yes: Symptoms Reported, See HPI Neurological: Yes: See HPI. No: Symptoms reported All Other Systems: Reviewed and Negative *Physical Exam - Vital Signs Last Vital Signs Temp Pulse Resp BP Pulse Ox 98.2 F 96 H 18 124/87 99 08/11/19 10:43 08/11/19 10:43 08/11/19 10:43 08/11/19 10:43 08/11/19 10:43 - Physical Exam General Appearance: Yes: Nourished, Appropriately Dressed, Mild Distress HEENT: positive: MARIELOS, TMs Normal (congested but landmarks easily visualized), Pharynx Normal (posterior sinus drainage noted but no erythema or exudate), Rhinorrhea. negative: Normal ENT Inspection Neck: positive: Tender, Supple, Lymphadenopathy (R), Lymphadenopathy (L) Respiratory/Chest: positive: Lungs Clear, Rhonchi (coarse inspiratory and expiratory breath sounds), Wheezing. negative: Normal Breath Sounds Gastrointestinal/Abdominal: positive: Soft. negative: Tender Musculoskeletal: positive: Normal Inspection Extremity: positive: Normal Capillary Refill, Normal Inspection Integumentary: positive: Dry, Warm, Pale Neurologic: positive: pattern attendant II-XII NML intact, Fully Oriented, Alert, Normal Mood/ Affect, Normal Response, Motor Strength 5/5 Progress Note - Progress Note Progress Note: Asthma exacerbation with URI. Much improved after second DuoNeb and 60 mg of prednisone. We will send a watch and wait azithromycin but patient understands to only start for worsened symptoms, fevers greater than 101.5, worsening cough. *DC/Admit/Observation/Transfer Diagnosis at time of Disposition: Asthmatic bronchitis with acute exacerbation Qualifiers: Asthma severity: mild Asthma persistence: intermittent Qualified Code(s): J45.21 - Mild intermittent asthma with (acute) exacerbation - Discharge Dispostion Disposition: HOME Condition at time of disposition: Stable Decision to Admit order: No - Prescriptions Prescriptions: Albuterol Sulfate Inhaler - [Ventolin HFA Inhaler -] 1 - 2 inh PO Q4H #1 inhaler Azithromycin [Zithromax -] 250 mg PO UTDICT #6 tab predniSONE [Deltasone -] 20 mg PO BID #8 tablet - Referrals - Patient Instructions Printed Discharge Instructions: DI for Acute Bronchitis Additional Instructions: Rest, drink lots of fluids: Teas, water, soups, Pedialyte Saltwater gargles Steamy showers/seem to face break up mucus Avoid contact with others until fevers and cough resolved Lots of handwashing and good hygiene Continue [id number] medications for symptomatic relief Tylenol or Motrin for fever and pain Continue albuterol nebulizers every 4-6 hours for the next 2 days then as needed for continued cough Prednisone as directed until completed Followup with private physician in one to 2 days Return to emergency department / pediatric hospital for worsened symptoms, fevers, dehydration - Post Discharge Activity Forms/Work/School Notes: Back to Work
== END 2019-08-11 12:10 | disposition home or self-care (01) ==
LOC: JERFT 10:32
PROC: 3E0F7GC Introduction of Other Therapeutic Substance into Respiratory Tract, Via Natural or Artificial Opening (ICD-10-PCS; principal; 2019-08-11)
PROC: 3E0F7GC Introduction of Other Therapeutic Substance into Respiratory Tract, Via Natural or Artificial Opening (ICD-10-PCS; 2019-08-11)
DX: J45.21 Mild intermittent asthma with (acute) exacerbation (principal)
CPT/HCPCS: 94640; 99281-25

== ENCOUNTER 2021-03-16 20:33 | Emergency (ER) | payer OTHER ==
[2021-03-16 20:48] VITALS: BMI 36.9
[2021-03-16] MEDS ORDERED: ACETAMINOPHEN 325 MG TABLET (FP) PO ONE (22:01)
[2021-03-16] MEDS ORDERED: FAMOTIDINE 20 MG/50 ML IVPB 20 MG/50 ML MG IVPB ONE ×2 (22:01→22:17)
[2021-03-16] MEDS ORDERED: ACETAMINOPHEN 325 MG TABLET (FP) ONE (22:17)
[2021-03-16 22:35] LABS: BASO % 1.1 % (0-2.0); EOS % 0.8 % (0-4.5); HEMATOCRIT 41.2 % (32.4-45.2); HEMOGLOBIN 14.9 GM/dL (10.7-15.3); LYMPH % 31.2 % (8-40); MCH 31.9 pg (25.7-33.7); MCHC 36.1 g/dl (32.0-36.0); MEAN CELL VOLUME 88.3 fl (80-96); MEAN PLT VOLUME 7.7 fl (7.5-11.1); MONO % 6.7 % (3.8-10.2); NEUT % 60.2 % (42.8-82.8); PLATELET COUNT 316 K/MM3 (134-434); RBC 4.67 M/mm3 (3.60-5.2); RDW 13.5 % (11.6-15.6); WHITE BLOOD COUNT 7.1 K/mm3 (4.0-10.0)
[2021-03-16 22:51] LABS: CHLORIDE 96 mmol/L (98-107); SODIUM 128 mmol/L (136-145)
[2021-03-16 22:53] LABS: ALBUMIN 3.4 g/dl (3.4-5.0); ANION GAP 7 MMOL/L (8-16); CO2 25 mmol/L (21-32); GLUCOSE,RANDOM 177 mg/dL (74-106)
[2021-03-16 22:55] LABS: CREATININE 0.7 mg/dL (0.55-1.3)
[2021-03-16 22:58] LABS: BILIRUBIN,TOTAL 1.2 mg/dL (0.2-1)
[2021-03-16 22:59] LABS: ALK PHOS 79 U/L (45-117)
[2021-03-16 23:00] LABS: BLOOD UREA NITROGEN 5.2 mg/dL (7-18); CALCIUM 7.9 mg/dL (8.5-10.1); TOT PROT 7.6 g/dl (6.4-8.2)
[2021-03-16] MEDS ORDERED: SODIUM CHLORIDE 500 ML IV STA (23:31)
[2021-03-16 23:42] LABS: URINE APPEARANCE CLOUDY; URINE BILIRUBIN NEGATIVE (NEGATIVE); URINE COLOR YELLOW; URINE GLUCOSE (UA) NEGATIVE (NEGATIVE); URINE KETONE NEGATIVE (NEGATIVE); URINE LEUK ESTERASE NEGATIVE (NEGATIVE); URINE NITRITE NEGATIVE (NEGATIVE); URINE PROTEIN NEGATIVE (NEGATIVE); URINE UROBILINOGEN 0.2 mg/dL (0.2-1.0)
[2021-03-17] MEDS ORDERED: SODIUM CHLORIDE 1,000 ML IV STA (00:26)
[2021-03-17] MEDS ORDERED: KETOROLAC TROMETHAMINE 30 MG/1 ML VIAL IVPUSH ONE (01:37)
[2021-03-17] MEDS ORDERED: KETOROLAC TROMETHAMINE 30 MG/1 ML VIAL ONE (01:38)
[2021-03-17 02:43] VITALS: BP 135/96; PULSE 95; TEMP 98.4
== END 2021-03-17 02:57 | disposition home or self-care (01) ==
LOC: JER 20:33
PROC: 3E033GC Introduction of Other Therapeutic Substance into Peripheral Vein, Percutaneous Approach (ICD-10-PCS; principal; 2021-03-16)
PROC: 3E0333Z Introduction of Anti-inflammatory into Peripheral Vein, Percutaneous Approach (ICD-10-PCS; 2021-03-16)
PROC: 3E0337Z Introduction of Electrolytic and Water Balance Substance into Peripheral Vein, Percutaneous Approach (ICD-10-PCS; 2021-03-16)
PROC: 3E0337Z Introduction of Electrolytic and Water Balance Substance into Peripheral Vein, Percutaneous Approach (ICD-10-PCS; 2021-03-16)
DX: E87.1 Hypo-osmolality and hyponatremia (principal); R07.9 Chest pain, unspecified
CPT/HCPCS: 36415; 71046-TC-FY; 71275-TC; 80053; 81003; 84484; 84703; 85025; 85379; 93005; 93010; 99285-25; C9803; Q9967; U0003; U0005

== ENCOUNTER 2021-11-09 09:29 | Emergency (ER) | payer OTHER ==
[2021-11-09 09:52] VITALS: BP 136/93; PULSE 101; TEMP 98.6; BMI 32.4
== END 2021-11-09 13:20 | disposition home or self-care (01) ==
LOC: JER 09:29
DX: J11.1 Influenza due to unidentified influenza virus with other respiratory manifestations (principal)
CPT/HCPCS: 87804; 99283-25; C9803; U0003; U0005

== ENCOUNTER 2023-02-06 18:20 | Emergency (ER) | payer OTHER ==
[2023-02-06 18:58] VITALS: BP 129/99; PULSE 113; RESP 16; TEMP 98.5; BMI 35.2
== END 2023-02-06 20:46 | disposition home or self-care (01) ==
LOC: JERFT 18:20 → JER 18:20 → JERFT 20:46
DX: S89.91XA Unspecified injury of right lower leg, initial encounter (principal); M25.561 Pain in right knee; X58.XXXA Exposure to other specified factors, initial encounter; Y93.02 Activity, running; Y92.219 Unspecified school as the place of occurrence of the external cause
CPT/HCPCS: 99283-25

== ENCOUNTER 2023-04-28 00:01 | Emergency (ER) | payer OTHER ==
[2023-04-28 00:21] VITALS: BP 113/89; PULSE 102; RESP 16; TEMP 98.6; BMI 26.1
[2023-04-28] MEDS ORDERED: ACETAMINOPHEN 500 MG TABLET (FP) PO ONE (01:32)
[2023-04-28] MEDS ORDERED: METHOCARBAMOL 500 MG TABLET PO ONE (01:32)
[2023-04-28] MEDS ORDERED: ACETAMINOPHEN 500 MG TABLET (FP) ONE (01:43)
[2023-04-28] MEDS ORDERED: METHOCARBAMOL 500 MG TABLET ONE (01:43)
== END 2023-04-28 03:03 | disposition home or self-care (01) ==
LOC: JER 00:01
DX: M54.50 Low back pain, unspecified (principal)
CPT/HCPCS: 99283-25

== ENCOUNTER 2025-04-29 06:29 | Day surgery (SDC) | payer OTHER ==
[2025-04-29 07:08] VITALS: BMI 37.8
[2025-04-29] MEDS ORDERED: FENTANYL CITRATE/PF 50 MCG/ML VIAL ONE ×3 (07:48→11:07)
[2025-04-29] MEDS ORDERED: BUPIVACAINE LIPOSOME/PF (EXPAREL) 266 MG/20 ML VIAL ONE (07:48)
[2025-04-29] MEDS ORDERED: BUPIVACAINE HCL/PF 0.5% (5MG/ML) 10 ML VIAL ONE (07:49)
[2025-04-29] MEDS ORDERED: MIDAZOLAM HCL 2 MG/2 ML SINGLE DOSE VIAL ONE (07:49)
[2025-04-29] MEDS ORDERED: BUPIVACAINE HCL/PF 2.5 MG/ML - 30 ML VIAL IJ ONE (07:50)
[2025-04-29] MEDS ORDERED: ceFAZolin SODIUM 1 GM VIAL ONE (08:11)
[2025-04-29] MEDS ORDERED: TRANEXAMIC ACID 1000 MG/10 ML VIAL ONE (08:11)
[2025-04-29] MEDS ORDERED: PROPOFOL 40 ML ONE (08:11)
[2025-04-29] MEDS ORDERED: SUCCINYLCHOLINE CHLORIDE 200 MG/10 ML SYRINGE ONE (08:11)
[2025-04-29] MEDS ORDERED: HYDROmorphone HCL/PF 1 MG/ML VIAL ONE ×2 (08:51→08:54)
[2025-04-29] MEDS ORDERED: KETOROLAC TROMETHAMINE 30 MG/1 ML VIAL ONE (08:52)
[2025-04-29] MEDS ORDERED: ONDANSETRON 4 MG/2 ML VIAL ONE (08:52)
[2025-04-29] MEDS ORDERED: DEXAMETHASONE SOD PHOSPHATE 4 MG/1 ML VIAL ONE (08:52)
[2025-04-29] MEDS ORDERED: VANCOMYCIN 1,000 MG VIAL (RESTRICTED TO ID ONLY) ONE (09:07)
[2025-04-29] MEDS ORDERED: PROPOFOL 20 ML ONE (09:38)
[2025-04-29] MEDS ORDERED: ACETAMINOPHEN INJECTION 100 ML ONE (10:41)
[2025-04-29] MEDS ORDERED: ONDANSETRON 4 MG/2 ML VIAL IVPUSH PRN (10:50)
[2025-04-29] MEDS ORDERED: oxyCODONE HCL 5 MG TABLET PO PRN (10:50)
[2025-04-29] MEDS: ACETAMINOPHEN 1000 MG/100 ML BAG IVPB ONE (10:53)
[2025-04-29 10:59] VITALS: TEMP 97.4
[2025-04-29] MEDS ORDERED: LACTATED RINGERS SOLUTION 1,000 ML IV SCH (11:00)
[2025-04-29 13:10] VITALS: RESP 18
[2025-04-29 13:12] VITALS: BP 115/84; PULSE 89
== END 2025-04-29 13:15 | disposition home or self-care (01) ==
LOC: FASU 06:29
PROVIDERS: ATTEND Orthopaedic Surgery Sports Medicine
PROC: 0MRN47Z Replacement of Right Knee Bursa and Ligament with Autologous Tissue Substitute, Percutaneous Endoscopic Approach (ICD-10-PCS; principal; 2025-04-29 09:06)
DX: S83.511A Sprain of anterior cruciate ligament of right knee, initial encounter (principal); S83.241A Other tear of medial meniscus, current injury, right knee, initial encounter; S83.281A Other tear of lateral meniscus, current injury, right knee, initial encounter; M94.261 Chondromalacia, right knee; M65.861 Other synovitis and tenosynovitis, right lower leg; X58.XXXA Exposure to other specified factors, initial encounter; Y92.9 Unspecified place or not applicable; Y93.9 Activity, unspecified
CPT/HCPCS: 29879; 29880; 29888; C1776; 73562-TC-RT-FY; 81025; 94760; 97116-GP; C1713; J0666